=== PATIENT | male | born 1980 | race Caucasian/White ===

== ENCOUNTER 2017-09-25 03:14 | Emergency (ER) | payer SELFPAY ==
[~2017-09-25] VITALS: Ht 172.7 cm; Wt 86.8 kg
[2017-09-25 03:19] VITALS: BP 125/82
[2017-09-25] MEDS ORDERED: HYDROcodone/APAP 5/325 TABLET ONE (04:00)
[2017-09-25] MEDS ORDERED: HYDROcodone/APAP 5/325 TABLET PO ONE (04:00)
== END 2017-09-25 04:28 | disposition home or self-care (01) ==
LOC: ED 04:20
DX: K64.8 Other hemorrhoids (principal)
CPT/HCPCS: 99283; 99406